=== PATIENT | female | born 1990 | race Caucasian/White ===

== ENCOUNTER 2022-07-09 12:27 | Emergency (ER) | payer BC, SELFPAY ==
--- NOTE | ~2022-07-09 | XR_ITS ---
XR finger 1st LT min 2V DATE: 07/09/2022 14:15 INDICATION: Hyperextension injury of thumb, pain TECHNIQUE: 3 views COMPARISON: None FINDINGS: No fracture or dislocation, periosteal reaction or bone destruction. Joint spaces are prese rved. No erosive change or chondrocalcinosis. IMPRESSION: Negative Reviewed, dictated and finalized at location A. NG I INSTRUCTOR IMPRESSION: Negative
[2022-07-09 13:29] VITALS: BP 107/60; PULSE 77; RESP 16; TEMP 36.7; O2SAT 99
--- NOTE | 2022-07-09 13:41 | ED.UPPEXIN ---
HPI - Extremity Injury (Upper) General Chief Complaint: Extremity Injury, Upper Stated Complaint: left thumb injury Time Seen by Provider: 07/09/22 13:41 Source: patient Mode of arrival: ambulatory Limitations: no limitations History of Present Illness HPI narrative: 31-year-old female presented for complaint of left thumb pain after injury today. She states she hyperextended the thumb while pressing down on a mattress attempting to get up. Endorses slight decreased range of motion to the thumb base. Patient is currently 24 weeks gestation. Has not taken anything for pain. She did apply ice to the site. She denies swelling or bruising to the city. She denies numbness, tingling, weakness. Related Data Home Medications Medication Instructions Recorded Confirmed aspirin 81 mg chewable tablet 81 mg PO DAILY 07/09/22 07/09/22 sertraline 100 mg tablet 100 mg PO DAILY 07/09/22 07/09/22 Allergies Allergy/AdvReac Type Severity Reaction Status Date / Time No Known Allergies Allergy Verified 07/09/22 13:44 Review of Systems Review of Systems: CONSTITUTIONAL: Denies body aches, fever, chills CARDIOVASCULAR: Denies chest pain, palpitations, or edema. RESPIRATORY: Denies cough or dyspnea. SKIN: Denies rash, itching, or wounds. MUSCULOSKELETAL: Per HPI NEUROLOGIC: Denies headache, numbness, tingling, or weakness. All systems reviewed & are unremarkable except as noted in HPI and below PMFSH Past Medical History Medical History (Updated 07/09/22 @ 14:40 by Viviana Ronquillo, [employer]) No pertinent past medical history Comments At time of signature, I have reviewed and agree with nursing past medical, surgical, social and family history unless otherwise noted. Please see nursing chart for further information. There is no relevant family history pertinent to the presenting complaint Exam Narrative: GENERAL: Well-appearing CHEST: Speaks in full sentences. No respiratory distress. HEART: Regular rate and rhythm. Normal and equal peripheral pulses. EXTREMITIES: Left thumb with mild tenderness to MCP, no swelling or bruising; hand has normal strength and sensation, slightly decreased range of motion at thumb base. Finger cascade intact. No open wounds or obvious deformity; alignment normal, pulse palpable and equal bilaterally, skin warm, dry, pink. Capillary refill less than 3 seconds. SKIN: Warm, dry, no rash. NEURO: Alert and oriented x3. PSYCH: Normal mood and affect Course Course Emergency Course: Patient is aware of diagnosis, understands and agrees to treatment plan. Anticipatory guidance given. Patient agrees to follow-up as directed and is aware of reasons to seek care at the emergency department. Portions of this record may have been created with voice recognition software Level of Care: Express Care Visit Vital Signs Vital signs: Vital Signs Temperature 98.0 F 07/09/22 13:29 Pulse Rate 77 07/09/22 13:29 Respiratory Rate 16 07/09/22 13:29 Blood Pressure 107/60 07/09/22 13:29 Pulse Oximetry 99 07/09/22 13:29 Oxygen Delivery Room Air 07/09/22 13:29 Temperature 98.0 F 07/09/22 13:29 Pulse Rate 77 07/09/22 13:29 Respiratory Rate 16 07/09/22 13:29 Blood Pressure 107/60 07/09/22 13:29 Pulse Oximetry 99 07/09/22 13:29 Oxygen Delivery Room Air 07/09/22 13:29 Reviewed MDM - Extremity Injury (Upper) MDM Narrative Medical decision making narrative: Patient is advised at length the risks associated with x-ray during . Based on PE, advised supportive measures including OTC thumb spica, ice, and Tylenol as she is . 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 Result of xray reviewed with pt. Advised supportive measures and signs/symptoms to go to the ER. Pt is appropriate for outpt treatment and f/u. Differential Diagnosis Differential diagnosis: Likely sprain and strain of wrist,
== END 2022-07-09 14:47 | disposition home or self-care (01) ==
PROVIDERS: Emergency Provider Nurse Practitioner Family
DX: O99.891 Other specified diseases and conditions complicating pregnancy (principal); Z3A.24 24 weeks gestation of pregnancy; M79.645 Pain in left finger(s); Z79.82 Long term (current) use of aspirin
CPT/HCPCS: 73140; 99213; G0463